=== PATIENT | male | born 1940 | race Caucasian/White ===

== ENCOUNTER 2023-03-08 11:17 | Emergency (ER) | payer MEDICARE, SELFPAY ==
[2023-03-08 11:20] VITALS: BP 183/91; PULSE 71; RESP 14; TEMP 36.7; O2SAT 99; BMI 29.0
--- NOTE | 2023-03-08 11:50 | DI.RAD.S_ITS ---
PROCEDURE: XR FINGER RT MIN 2V INDICATIONS: Fall/injury/right thumb TECHNIQUE: AP hand, 2 views of the 1st finger(s) acquired. COMPARISON: None. FINDINGS: Bones: No fractures or dislocations. No suspicious bony lesions. Scattered arthritic changes most severe the 2nd MCP joint. Soft tissues: No suspicious soft tissue calcifications. IMPRESSION: No visualized acute fracture or dislocation. However, if clinical concern and/or pain persist, short interval imaging followup in 7-10 days is recommended, as occult injury cannot be definitively excluded. Dictated by: Devika Bradley M.D. on 03/08/2023 at 13:09 Approved by: Devika Bradley M.D. on 03/08/2023 at 13:10
--- NOTE | 2023-03-08 11:52 | ED_ITS ---
HPI - Extremity Injury (Upper) General Chief Complaint: Extremity Injury, Upper Stated Complaint: infection in RT thumb T-7 Time Seen by Provider: 03/08/23 11:46 Source: patient Mode of arrival: Ambulatory History of Present Illness HPI narrative: Patient up-to-date with his tetanus shot. He is right-handed. Complains of right thumb injury 1 week ago, he fell in a parking lot into some rocks. No wood products as far as he knows or class. He has skin injury at the cuticle at the right thumb medially. No red streaking. Patient has no difficulty moving his thumb. No swelling of the thumb. No discharge. There is small avulsion 3 mm at the cuticle. No bleeding Related Data Home Medications Medication Instructions Recorded Confirmed pravastatin 10 mg tablet 10 mg PO ##0 03/02/11 ramipril 10 mg capsule 10 mg PO Q DAY ##0 03/20/11 COLCHICINE (#COLCHICINE) 0.6 mg PO QDAY ##0 01/02/13 amlodipine 5 mg tablet (Norvasc) 5 mg PO QDAY ##0 01/02/13 aspirin 81 mg tablet,delayed 81 mg PO QDAY ##0 01/02/13 release Previous Rx's Medication Instructions Recorded sulfamethoxazole 800 1 tab PO BID #20 tabs 03/14/16 mg-trimethoprim 160 mg tablet doxycycline monohydrate 100 mg 100 mg PO BID #10 caps 03/08/23 capsule Allergies Allergy/AdvReac Type Severity Reaction Status Date / Time penicillin G [PENICILLIN G] Allergy Severe RESPIRATORY Unverified 10/09/17 11:46 ARREST Sulfa (Sulfonamide Allergy Mild NAUSEA/BENAVIDES/W Unverified 10/09/17 11:46 Antibiotics) EAKNESS [SULFA (SULFONAMIDE ANTIBIOTICS)] codeine [CODEINE] AdvReac Severe IRRITABLE, Unverified 10/09/17 11:46 CONSTIPATION Review of Systems Review of Systems Narrative: GENERAL: negative chills, fatigue, malaise, fever, sweats. MUSCULOSKELETAL: Negative muscle or bony pain SKIN: negative rash, skin lesions, positive skin injury NEUROLOGIC: negative weakness, numbness ROS Unobtainable: All systems reviewed & are unremarkable except as noted in HPI and below Patient History Surgical History (Updated 10/29/17 @ 04:59 by Conversion Provider) History of angioplasty History of tonsillectomy Family History (Updated 03/25/17 @ 00:00 by Conversion Provider) Brother Heart disease Father Heart disease Grandfather Hypertension Mother Heart disease Sister Heart disease Social History Smoking Status: Never smoker Smoking Status: Never smoker alcohol intake frequency: 0-2 drinks per day Substance Use Type: does not use Exam Narrative Exam Narrative: GENERAL: in no distress, not toxic not dyspneic HEAD: Normocephalic. EXTREMITIES: No gross deformities. Examination right hand. Small defect/avulsion of the skin at the cuticle at the medial aspect of the right thumb. No red streaking no erythema edema. Able to push against my thumb with his thumb without difficulty. Rotates his thumb in a [place] flexes and extends at the MCP and IP joints without difficulty. No subungual hematoma. No discharge no bleeding. Nontender on palpation. No palpable foreign body. Based visualized. Skin defect is about 3 mm no bone or tendon injury seen or exposure NEURO: AOx4. SKIN: Warm and dry PSYCH: Not anxious, is cooperative Initial Vital Signs Initial Vital Signs: Vital Signs Temperature 98.0 F 03/08/23 11:20 Pulse Rate 71 03/08/23 11:20 Respiratory Rate 14 03/08/23 11:20 Blood Pressure 183/91 H 03/08/23 11:20 Pulse Oximetry 99 03/08/23 11:20 Oxygen Delivery Method Room Air 03/08/23 11:20 Course Orders Ordered: Discontinued Medications Bacitracin (Bacitracin Oint 0.9 Gm Pckt) 1 applic TOP NOW ONE Stop: 03/08/23 11:52 Last Admin: 03/08/23 12:00 Dose: 1 applic Documented By: JAVIER Doxycycline Hyclate (Doxycycline Hyclate 100 Mg Tablet) 100 mg PO NOW ONE Stop: 03/08/23 11:52 Last Admin: 03/08/23 12:00 Dose: 100 mg Documented By: JAVIER Vital Signs Vital signs: Vital Signs - 8 hr 03/08/23 11:20 Temperature 98.0 F Pulse Rate 71 Respiratory Rate 14 Blood Pressure 183/91 H Pulse Oximetry 99 Oxygen Delivery Method Room Air MDM - Extremity Injury (Upper) Imaging Data Extremity x-ray #1: Radiologist's Impression: [address] [address] XRay Report Signed Patient: Camden Andre MR#: [id number] : 1940 Acct:[id number] Age/Sex: 82 / M Date of Service: 03/08/23 Loc: ED Accession Number: [id number] ?? Procedure: XR finger RT min 2V Ordering Provider: Ridge Zendejas MD PROCEDURE:? XR FINGER RT MIN 2V ? INDICATIONS:? Fall/injury/right thumb ? TECHNIQUE:? AP hand, 2 views of the 1st finger(s) acquired.? ? COMPARISON:? None. ? FINDINGS:? ? Bones:? No fractures or dislocations.? No suspicious bony lesions.? Scattered arthritic changes most severe the 2nd MCP joint. ? Soft tissues:? No suspicious soft tissue calcifications.? ? IMPRESSION:? No visualized acute fracture or dislocation. However, if clinical concern and/or pain persist, short interval imaging followup in 7-10 days is recommen ded, as occult injury cannot be definitively excluded. ? ? Dictated by: Devika Bradley M.D. on 03/08/2023 at 13:09 ? ? Approved by: Devika Bradley M.D. on 03/08/2023 at 13:10 ? [facility] Narrative Medical decision making narrative: Patient up-to-date with his tetanus shot. He is right-handed. Complains of right thumb injury 1 week ago, he fell in a parking lot into some rocks. No wood products as far as he knows or class. He has skin injury at the cuticle at the right thumb medially. No red streaking. Patient has no difficulty moving his thumb. No swelling of the thumb. No discharge. There is small avulsion 3 mm at the cuticle. No bleeding After history and exam bacitracin doxycycline x-ray right thumb MDM CC: Right thumb injury Complicating co-morbidities: None Data collected from: Patient Medical records reviewed: No recent visit for this complaint Differential considered: Includes but not limited to retained foreign body paronychia thumb fracture cellulitis Exam documented above, pertinent findings include: Skin defect on the thumb Imaging studies independently reviewed: X-ray right thumb no acute finding Treatments: Bacitracin doxycycline Re-evaluations: 12:21 p.m.. Patient does not want to wait for x-ray results. He states he has to catch a [place] back to [place]. He does understand we do not have final report. He states the prepress technician did not see anything on the x-ray however I informed him that the prepress technician is not a radiologist. Discussion: Appropriate for discharge home. Exam is reassuring. Antibiotics have been started. Patient is up-to-date with tetanus shot. He does not want to wait for x-ray results. Return precautions reviewed with him. He desires discharge home. Wound care provided here for the thumb. Antibiotics have been started. Prescription provided as well. Primary care referral given as well. Diagnosis: Skin avulsion Discharge Plan Departure Patient Disposition: Home Clinical Impression: Avulsion of skin Instructions: Skin Wound Activity Restrictions/Additional Instructions: Your x-rays of your thumb have not resulted at the time you wanted to leave. You may call back for the results. Prescription antibiotic has been sent to your pharmacy to continue today. Please clean your thumb daily with warm soap and water and apply thin layer of topical antibiotic. Be sure to keep a dressing on it. No submersion of the thumb under water but you may shower. See family doctor in a week for re-evaluation of your thumb. Call provided primary care referral phone number to establish family doctor. Call [phone] Prescriptions: New doxycycline monohydrate 100 mg capsule 100 mg PO BID Qty: 10 0RF No Action pravastatin 10 MG tablet 10 mg PO Qty: 0 ramipril 10 MG capsule 10 mg PO Q DAY Qty: 0 COLCHICINE (#COLCHICINE) 0.6 mg PO QDAY Qty: 0 amlodipine [Norvasc] 5 MG tablet 5 mg PO QDAY Qty: 0 aspirin 81 MG tablet,delayed release (DR/EC) 81 mg PO QDAY Qty: 0 sulfamethoxazole-trimethoprim 800 MG/160 MG tablet 1 tab PO BID Qty: 20 0RF Referrals: Geoff Allen MD [Primary Care Provider] - Stand Alone Forms: Patient Portal/API
[2023-03-08] MEDS: DOXYCYCLINE HYCLATE 100 MG TABLET PO (12:00)
[2023-03-08] MEDS: BACITRACIN OINT 0.9 GM PCKT 1 APPLIC TOP (12:00)
== END 2023-03-08 12:24 | disposition home or self-care (01) ==
PROVIDERS: Emergency Provider Emergency Medicine; Family Provider Family Medicine; PCP Family Medicine
DX: S69.91XA Unspecified injury of right wrist, hand and finger(s), initial encounter (principal); W18.30XA Fall on same level, unspecified, initial encounter
CPT/HCPCS: 73140; 99283; 99284